=== PATIENT | male | born 1955 | race Caucasian/White ===

== ENCOUNTER → 2017-06-16 | Outpatient (CLI) | payer OTHER ==
[~2017-06-16] MED LIST: ASPI-555 PO; ATOR40TA71 PO; CARV25TA PO; CHOL200074 PO; CRAN500T2 PO; ISOS20TA7 PO; LEVE750T51 PO; NITR0.4T50 SL; OMEG1CAP43 PO; POTA20TA82 PO; SERT50TA12 PO; TRAZ-147 PO; VITA100049 PO
[2017-06-16 09:45] LABS: CREATININE 1.2 mg/dL (0.5-1.5)
== END | disposition home or self-care (01) ==
LOC: LAB 08:47
PROVIDERS: ATTEND Internal Medicine Cardiovascular Disease
DX: R07.9 Chest pain, unspecified (principal)
CPT/HCPCS: 36415; 82565; 84520

== ENCOUNTER → 2017-06-19 | Outpatient (CLI) | payer OTHER ==
[~2017-06-19] MED LIST changes: +IOPAMIDOL-370 100 ML VIAL IV ONE
== END | disposition home or self-care (01) ==
LOC: OIH 09:05
PROVIDERS: ATTEND Internal Medicine Cardiovascular Disease
DX: K44.9 Diaphragmatic hernia without obstruction or gangrene (principal); M47.895 Other spondylosis, thoracolumbar region; I51.7 Cardiomegaly; Z90.49 Acquired absence of other specified parts of digestive tract
CPT/HCPCS: 75574; Q9967